=== PATIENT | female | born 1970 | race Caucasian/White ===

== ENCOUNTER 2019-11-15 16:51 | Emergency (ER) | payer OTHER, SELFPAY ==
[2019-11-15 16:55] VITALS: BP 116/58; PULSE 77; RESP 18; TEMP 36.9; O2SAT 98; BMI 21.6
[2019-11-15 17:16] VITALS: BP 113/63; PULSE 74; O2SAT 97
--- NOTE | 2019-11-15 17:33 | ED_ITS ---
HPI - Wound/Laceration General: Chief Complaint: Wound/Laceration Stated Complaint: LAC TO R ARM Time Seen by Provider: 11/15/19 17:21 History of Present Illness: HPI narrative: Patient comes in via ambulance she was at work at [employer] above some coolers and she slipped and fell and sustained a laceration abrasion to her right arm Onset (ago): minute(s) Extremity Location: Right: arm and forearm Place: work Patient tetanus UTD: No Context: accidental Associated symptoms: Reports no associated symptoms; Denies chills, fever(s), nausea or vomiting Treatments prior to arrival: bandage Review of Systems Const: Denies: fever(s), chills or body aches Eyes: Denies: change in vision or blurry vision ENMT: Denies: throat pain or nasal congestion Card: Denies: chest pain or dyspnea on exertion Resp: Denies: dyspnea, productive cough or non-productive cough GI: Denies: abdominal pain, nausea or vomiting Musc: Denies: extremity pain Skin/Breast: Reports: other (Abrasion laceration to right arm); Denies: rash Neuro: Denies: headache(s) Psych: Denies: anxiety or depression Wallace/Lymph: Denies: easy bruising Physical Exam Const: COMMON NORMALS: no acute distress, average body habitus and patient oriented x3 HENMT: COMMON NORMALS: normocephalic HEAD & SCALP: normal to inspection and normocephalic FACE & SINUS: normal facial exam Eye: COMMON NORMALS: conjunctivae normal GENERAL EYE: appearance normal, both eyes and all related structures CONJUNCTIVA: Yes conjunctivae normal Neck/C-Spine: COMMON NORMALS: no JVD Chest: COMMONS NORMALS: normal inspection of the chest Resp: COMMON NORMALS: normal respiratory effort and clear to auscultation bilaterally AUSCULTATION: clear to auscultation bilaterally Cardio: COMMON NORMALS: no JVD, regular rate and regular rhythm RATE: regular rate RHYTHM: regular rhythm GI: COMMON NORMALS: Normal to inspection, nondistended, normoactive bowel sounds present Extremity: COMMON NORMALS: normal to inspection and full ROM NARRATIVE EXTREMITY EXAM: Has a deep laceration to her right forearm lateral aspect mid area and then has an abrasion to her right inner upper arm neurovascular distal is intact Neuro: COMMON NORMALS: patient oriented x3 Procedures Laceration Laceration 1: Site: upper extremity Side (If applicable): right Size (cm): 3 Description: linear and irregular Depth: involves muscle layer Local Anesthetic: lidocaine 1% Amount of anesthesia used (mL): 4 Pre-repair: wound explored, irrigated extensively and deep structures intact Skin layer closed with: vicryl Size (cm): 3-0 Number of sutures: 4 Technique: simple, interrupted Size: 3-0 Number of sutures: 7 Technique: simple, interrupted Course Vital Signs: Vital signs: Vital Signs Temperature 98.5 F 11/15/19 16:55 Pulse Rate 75 11/15/19 18:30 Respiratory Rate 17 11/15/19 18:30 Blood Pressure 109/69 11/15/19 18:30 Pulse Oximetry 98 11/15/19 18:30 Discharge Plan Discharge Patient Disposition: Home, Self-Care Clinical Impression: Laceration, Abrasion Condition: Stable Referrals: Juan Luis Carmen MD [Primary Care Provider] - Discharge Diet: Usual diet Discharge Activity: Resume usual activity Patient Instructions: Laceration (ED), Abrasion (ED) Activity Restrictions/Additional Instructions: Wound care as directed sutures out in 7 days if any signs symptoms of infection develop follow-up with workman comp doc Discharge Date/Time: 11/15/19 18:30 Coding Level of Care Code ED Tar Heater Operator for Noe Fwd Exam Comprehensive
[2019-11-15] MEDS: lidocaine 1% INJ 20 mL 5 ML INTRADERMA (17:37)
[2019-11-15] MEDS: tetanus-dipt-pertussis 0.5 mL SDV IM (17:59)
--- NOTE | 2019-11-15 18:06 | PC.NURSE ---
Patients forearm and upper arm bandaged at this time with telfa and kerlix.
[2019-11-15 18:30] VITALS: BP 109/69; PULSE 75; RESP 17; O2SAT 98
== END 2019-11-15 18:30 | disposition home or self-care (01) ==
LOC: ER 18:21
PROVIDERS: Emergency Provider Nurse Practitioner Family; PCP Family Medicine
DX: S41.111A Laceration without foreign body of right upper arm, initial encounter (principal); W01.0XXA Fall on same level from slipping, tripping and stumbling without subsequent striking against object, initial encounter; Y99.0 Civilian activity done for income or pay; Z23 Encounter for immunization
CPT/HCPCS: 12345; 13121; 90715; 96372; 99281; 99283; J2001

== ENCOUNTER 2019-11-17 13:05 | Emergency (ER) | payer OTHER, SELFPAY ==
--- NOTE | 2019-11-17 13:07 | XRR_ITS ---
PROCEDURE INFORMATION: Exam: XR Right Knee Exam date and time: 11/17/2019 1:43 PM Age: 49 years old Clinical indication: Injury or trauma; Fall; Initial encounter; Blunt trauma; Knee; Right; Injury date: 11/15/19; Injury details: Fell off cooler TECHNIQUE: Imaging protocol: XR Right knee. Views: 3 views. COMPARISON: No relevant prior studies available. FINDINGS: Bones/joints: Unremarkable Soft tissues: Normal. XR/XR knee RT 3V* [id number] IMPRESSION: No acute findings.
[2019-11-17 13:16] VITALS: BP 131/65; PULSE 91; RESP 17; TEMP 36.4; O2SAT 98; BMI 21.6
--- NOTE | 2019-11-17 13:47 | ED_ITS ---
HPI - Extremity Injury (Lower) General: Chief Complaint: Extremity Injury, Lower Stated Complaint: right knee pain Time Seen by Provider: 11/17/19 13:46 Source: patient Mode of arrival: ambulatory Limitations: no limitations History of Present Illness: HPI Narrative: Patient is a 49-year-old female who presents to ED today with a complaint of right knee pain. Patient was seen here 2 days ago following a fall that happened at work. She states she was complaining of some mild knee pain at that time however based on her examination x-rays were not felt to be indicated. Patient tells me since then she has had increasing pain in the right knee and has noticed swelling and bruising. Patient is continuing to be ambulatory. complaint: knee injury Onset (ago): day(s) Injury: Left: knee Type of Injury: blunt Place: work Severity: moderate Relieving factors: immobilization Exacerbating factors: weight bearing, movement and palpation Context: fall Review of Systems Musc: Reports: joint pain (R knee) and joint swelling (R knee); Denies: neck pain, back pain, extremity pain or extremity swelling Neuro: Denies: numbness in extremities or sensory changes Physical Exam Const: COMMON NORMALS: no acute distress, average body habitus, patient oriented x3, no limitations, healthy appearing, alert and well nourished Extremity: OTHER: bruising/swelling noted to anterior knee/patellar region Neuro: COMMON NORMALS: patient oriented x3 SENSORIUM/ORIENTATION: Yes alert Course Vital Signs: Vital signs: Vital Signs Temperature 97.6 F 11/17/19 13:16 Pulse Rate 91 11/17/19 13:16 Respiratory Rate 17 11/17/19 13:16 Blood Pressure 131/65 11/17/19 13:16 Pulse Oximetry 98 11/17/19 13:16 MDM - Extremity Injury (Lower) Imaging Data^: R knee XR: Radiologist's impression: [address] [address] XRay Report Signed Patient: Patti Madrid Unit #: [id number] : 1970 Age/Sex: 49 / F ADM Date: 11/17/19 Loc: ER Room/Bed: Attending Dr: Ordering Provider/Ordering MD: James Velazquez MD Date of Service: 11/17/19 Procedure(s): XR knee RT 3V* [id number] Accession Number(s): [id number] Report Number: [id number] PROCEDURE INFORMATION: Exam: XR Right Knee Exam date and time: 11/17/2019 1:43 PM Age: 49 years old Clinical indication: Injury or trauma; Fall; Initial encounter; Blunt trauma; Knee; Right; Injury date: 11/15/19; Injury details: Fell off cooler TECHNIQUE: Imaging protocol: XR Right knee. Views: 3 views. COMPARISON: No relevant prior studies available. FINDINGS: Bones/joints: Unremarkable Soft tissues: Normal. XR/XR knee RT 3V* [id number] IMPRESSION: No acute findings. Dictated By: Twin Morrissey Signed By: Twin Morrissey Signed Date/Time: 11/17/19 140 DD/ 01 Discharge Plan Discharge Patient Disposition: Home, Self-Care Clinical Impression: Contusion of knee, right Qualifiers: Encounter type: initial encounter Qualified Code(s): S80.01XA - Contusion of right knee, initial encounter Condition: Stable Discharge Orders: Discharge Order (Routine); Ordered 11/17/19 Ordered By: Keyla Oliva Referrals: Juan Luis Carmen MD [Primary Care Provider] - Patient Instructions: Contusion in Adults (ED), RICE Therapy (ED) Activity Restrictions/Additional Instructions: Continue to ice and elevate extremity as directed. You may use [id number] Tylenol and ibuprofen as needed for discomfort. Please follow-up with primary care for one week for continued pain. Coding Level of Care Code ED Brewery Pumper for Noe Reynolds Exam Problem Focused
--- NOTE | 2019-11-17 14:16 | PC.NURSE ---
Patient declined crutches. Cuco wrap to right knee x 2 pateint given discharge instructions and verbalized understanding.
[2019-11-17 14:17] VITALS: BP 98/62; PULSE 74; RESP 14; O2SAT 99
== END 2019-11-17 14:21 | disposition home or self-care (01) ==
PROVIDERS: Emergency Provider Physician Assistant; PCP Family Medicine
DX: S80.01XA Contusion of right knee, initial encounter (principal); W19.XXXA Unspecified fall, initial encounter; Y99.0 Civilian activity done for income or pay
CPT/HCPCS: 12345; 73562; 99281; 99283

== ENCOUNTER → 2019-12-03 08:47 | Outpatient (BNVA) | payer OTHER, SELFPAY | PROVIDERS: PCP Family Medicine; Referring Provider Physician Assistant; Visit Provider Orthopaedic Surgery | DX: S89.91XA Unspecified injury of right lower leg, initial encounter (principal); M25.561 Pain in right knee; M25.461 Effusion, right knee; X58.XXXA Exposure to other specified factors, initial encounter | CPT/HCPCS: 73562 ==

== ENCOUNTER 2019-12-10 16:05 | Outpatient (CLI) | payer OTHER, SELFPAY ==
--- NOTE | 2019-12-10 16:33 | MRR_ITS ---
PROCEDURE INFORMATION: Exam: MR Right Lower Extremity Joint Without Contrast, Knee Exam date and time: 12/10/2019 5:00 PM Age: 49 years old Clinical indication: Injury or trauma; Fall; Initial encounter; Blunt trauma; Knee; Right; Injury date: 11/17/19; Patient HX: PT fell 11/17/19. C/O pain RT patella, aching into thigh; Additional info: S89.91xa unspecified injury of right lower leg, initial e. . . TECHNIQUE: Imaging protocol: MR of the Right lower extremity joint without contrast. Exam focused on the knee. COMPARISON: CR XR knee RT 3V* [id number] 12/03/2019 8:51 AM FINDINGS: Bones and cartilage: Unremarkable. No bone abnormalities. Articular cartilage normal. Joint spaces: No joint effusion. Medial meniscus: Unremarkable. No tear. Lateral meniscus: Unremarkable. No tear. Anterior cruciate ligament: Unremarkable. No tear. Posterior cruciate ligament: Unremarkable. No tear. Medial capsule and supporting structures: Unremarkable. No tear. Lateral capsule and supporting structures: Unremarkable. No tear. Extensor mechanism of knee: Unremarkable. No tear. Muscles: Unremarkable. Soft tissues: Prepatellar soft tissue edema, no mass. MR/MR knee RT wo con* [id number] IMPRESSION: Soft tissue edema.
== END 2019-12-10 16:06 | disposition home or self-care (01) ==
LOC: RADSHAW 16:28
PROVIDERS: PCP Family Medicine; Visit Provider Orthopaedic Surgery
DX: S89.91XA Unspecified injury of right lower leg, initial encounter (principal); X58.XXXA Exposure to other specified factors, initial encounter; R60.0 Localized edema
CPT/HCPCS: 73721

== ENCOUNTER 2020-04-07 11:54 | Emergency (ER) | payer SELFPAY ==
[2020-04-07 12:11] VITALS: BP 127/69; PULSE 92; RESP 16; TEMP 37; O2SAT 98; BMI 23.3
--- NOTE | 2020-04-07 12:45 | ECG_ITS ---
[facility] Test Date: 2020-04-07 Pat Name: Patti Madrid Department: Room: Gender: Female [employer] Systems Adminstrator: : 1970 Requested By: Maite De Dios I Order Number: [id number] Reading MD: PRUDENCE FERRARI Measurements Intervals [place] Rate: 80 P: 40 WY: 142 QRS: 84 QRSD: 81 T: 55 QT: 362 QTc: 419 Interpretive Statements SINUS RHYTHM INTERPRETATION BASED ON A DEFAULT AGE OF 40 YEARS No previous ECG available for comparison Electronically Signed On 04-07-2020 19:58:35 CHANNEL LAYER by PRUDENCE FERRARI [email or web address]
--- NOTE | 2020-04-07 12:46 | XR_ITS ---
WS: [id number] CHEST 2 VIEWS HISTORY: chest pain COMPARISON: 05/21/2018 Lungs: Hyperexpanded lungs with changes of emphysema. No pneumonia. Normal vasculature. Cardiac size: Normal. Mediastinum/Aorta: Normal mediastinum. Bones: Normal. XR/XR chest 2V* [id number] IMPRESSION: Chronic emphysema. No acute cardiopulmonary disease.
[2020-04-07 12:47] VITALS: BP 122/64; PULSE 71; RESP 18; O2SAT 99
--- NOTE | 2020-04-07 12:48 | W.ED.CHESTPA ---
HPI - Chest Pain General: Chief Complaint: Chest Pain Stated Complaint: CP X 3 DAYS Time Seen by Provider: 04/07/20 12:23 Source: patient Mode of arrival: ambulatory Limitations: no limitations History of Present Illness: HPI narrative: Left-sided chest pain x3 days. Chest pain has been persistent since then. Pain is worse on inspiration, coughing, shouting. No fever, no difficulty breathing. complaint: chest pain Onset (ago): day(s) (3) Timing of current episode: constant Prior episodes: No Onset: during rest Pain location: left chest Pain radiation: left arm and neck Severity: severe Quality: sharp Relieving factors: nothing Exacerbating factors: nothing Associated symptoms: Reports vomiting; Deny abdominal pain, diaphoresis, dyspnea, fever(s), leg edema, nausea, palpitations, sense of impending doom or syncope Risk Factors: Coronary artery disease risk factors: family history of CAD before age 50 Review of Systems General: Reports: 10 or more systems reviewed and unremarkable except in HPI and below Const: Denies: fever(s) or diaphoresis Eyes: Denies: change in vision or blurry vision ENMT: Denies: throat pain, enlarged tonsils, odynophagia, hoarseness, mouth pain or swelling of lips/tongue Card: Denies: palpitations or syncope Resp: Denies: dyspnea GI: Reports: vomiting; Denies: abdominal pain or nausea : Denies: flank pain, difficulty voiding, dysuria, urinary frequency, urinary urgency or urinary hesitancy Musc: Denies: neck pain, back pain or extremity swelling Skin/Breast: Denies: rash, pruritus or erythema Neuro: Denies: headache(s), numbness in extremities or weakness in extremities Endo: Denies: polyuria, polydipsia or tired all the time PFS ED PFSH: Social History (Reviewed 04/07/20 @ 12:51 by Maite De Dios MD, [facility]) Smoking and tobacco status: never smoked Alcohol intake: current Alcohol intake frequency: few times a week Substance/Drug Use: never Physical Exam Const: COMMON NORMALS: no acute distress, average body habitus, patient oriented x3, no limitations, healthy appearing, alert and well nourished HENMT: COMMON NORMALS: normocephalic, atraumatic and moist oral mucous membranes HEAD & SCALP: normocephalic and atraumatic Neck/C-Spine: COMMON NORMALS: full ROM, supple, no meningeal signs, no JVD and No carotid bruits Chest: COMMONS NORMALS: normal inspection of the chest and normal palpation of entire chest wall Resp: COMMON NORMALS: normal respiratory effort, No retractions, No use of accessory muscles, clear to auscultation bilaterally and percussion normal AUSCULTATION: clear to auscultation bilaterally PERCUSSION: percussion normal Cardio: COMMON NORMALS: no JVD, regular rate, regular rhythm, S1 normal heart sound present, S2 normal heart sound present, No gallops present (Cardio), No clicks present (Cardio), No murmurs present (Cardio), No rub (Cardio) and Peripheral pulses 2+ throughout RATE: regular rate RHYTHM: regular rhythm HEART SOUNDS: S1 normal heart sound present and S2 normal heart sound present PERIPHERAL PULSES: Peripheral pulses 2+ throughout GI: COMMON NORMALS: Normal to inspection, nondistended, normoactive bowel sounds present, Soft to palpation, non-tender, No hepatosplenomegaly present, no masses and no bruits PALPATION: Yes Soft to palpation and Yes No hepatosplenomegaly present Extremity: COMMON NORMALS: normal to inspection, full ROM, capillary refill normal, no calf tenderness and no pedal edema Neuro: COMMON NORMALS: patient oriented x3 SENSORIUM/ORIENTATION: Yes alert MENINGEAL SIGNS: Yes no meningeal signs Skin: COMMON NORMALS: no rashes or lesions noted, no wounds, turgor normal, no jaundice, no petechiae and no mottling GENERAL SKIN EXAM: no rashes or lesions noted and turgor normal Course Reevaluation(s): Reevaluation #1: Discussed her lab and imaging findings with her. Negative high-sensitivity troponin, and since her pain has been continuous for 3 days it is unlikely to be ACS. Negative D-dimer. Heart score is low. Symptoms are most likely secondary to pleurisy and she is advised to take NSAIDs. She voiced understanding and is in agreement with the plan. Time: 13:52 Vital Signs: Vital signs: Vital Signs Temperature 98.6 F 04/07/20 12:11 Pulse Rate 84 04/07/20 13:30 Respiratory Rate 18 04/07/20 13:30 Blood Pressure 112/73 04/07/20 13:30 Pulse Oximetry 98 04/07/20 13:30 MDM - Chest Pain MDM Narrative: Medical decision making narrative: Patient with clinical features consistent with pleurisy. Heart score is 2 for age and risk factors (family history). She is therefore low risk for major adverse cardiac event in the next 6 weeks. She will be discharged home and is advised to take NSAIDs. Medical Records: Attestation: I reviewed the patient's medical records. Lab Data: Attestation: I reviewed the patient's lab results. Labs: Lab Results 04/07/20 04/07/20 04/07/20 Range/Units 12:43 12:43 12:43 WBC 3.5 L (4.0-10.0) 10^3/ uL RBC 4.51 (4.1-5.3) 10^6/u L Hgb 13.6 (11.5-15.3) g/dL Hct 40.9 (37.0-47.0) % MCV 90.7 (81-99) fL MCH 30.2 (28.0-34.0) pg MCHC 33.3 (30.0-36.0) g/dL RDW 12.1 (12.1-15.1) % Plt Count 229 (130-400) 10^3/c mm MPV 10.3 (7.4-10.4) fL Neut % (Auto) 49.1 % Lymph % (Auto) 39.0 % Amelia % (Auto) 8.8 % Eos % (Auto) 1.4 % Baso % (Auto) 1.7 % Neut # (Auto) 1.72 L (1.8-7.7) 10^3/u L Lymph # (Auto) 1.4 (0.8-4.8) 10^3/u L Amelia # (Auto) 0.3 (0.2-0.9) 10^3/u L Eos # (Auto) 0.1 (0.0-0.8) 10^3/u L Baso # (Auto) 0.1 (0.0-0.1) 10^3/u L Nucleated RBC % (a uto) 0 % Nucleated RBCs # 0.0 /100WBC D-Dimer <= 0.27 (0-0.59) ug/mIFE U Sodium 139 (136-145) mmol/L Potassium 3.5 (3.5-5.1) mmol/L Chloride 105 (98-107) mmol/L Carbon Dioxide 22 (22-29) mmol/L Anion Gap 15.5 (5-19) BUN 12 (6-20) mg/dL Creatinine 0.7 (0.5-0.9) mg/dL GFR Calculation 88.9 L (90-130) mL/min Glucose 113 (65-115) mg/dL Calculated Osmolal ity 289 (285-295) mOsm/k g Calcium 8.9 (8.5-10.5) mg/dL Total Bilirubin 0.2 (0.15-1.2) mg/dL AST 19 (0-32) U/L ALT 13 (0-33) U/L Alkaline Phosphata se 59 (35-105) IU/L Troponin T Baselin e (0-10) ng/L NT-Pro-B Natriuret Pep 75 (0-125) pg/mL Total Protein 7.2 (6.6-8.7) g/dL Albumin 4.5 (3.5-5.2) g/dL Globulin 2.7 (1.3-4.6) g/dL Lipase 21 (13-60) U/L //20 Range/Units 12:43 WBC (4.0-10.0) 10^3/ uL RBC (4.1-5.3) 10^6/u L Hgb (11.5-15.3) g/dL Hct (37.0-47.0) % MCV (81-99) fL MCH (28.0-34.0) pg MCHC (30.0-36.0) g/dL RDW (12.1-15.1) % Plt Count (130-400) 10^3/c mm MPV (7.4-10.4) fL Neut % (Auto) % Lymph % (Auto) % Amelia % (Auto) % Eos % (Auto) % Baso % (Auto) % Neut # (Auto) (1.8-7.7) 10^3/u L Lymph # (Auto) (0.8-4.8) 10^3/u L Amelia # (Auto) (0.2-0.9) 10^3/u L Eos # (Auto) (0.0-0.8) 10^3/u L Baso # (Auto) (0.0-0.1) 10^3/u L Nucleated RBC % (a uto) % Nucleated RBCs # /100WBC D-Dimer (0-0.59) ug/mIFE U Sodium (136-145) mmol/L Potassium (3.5-5.1) mmol/L Chloride (98-107) mmol/L Carbon Dioxide (22-29) mmol/L Anion Gap (5-19) BUN (6-20) mg/dL Creatinine (0.5-0.9) mg/dL GFR Calculation (90-130) mL/min Glucose (65-115) mg/dL Calculated Osmolal ity (285-295) mOsm/k g Calcium (8.5-10.5) mg/dL Total Bilirubin (0.15-1.2) mg/dL AST (0-32) U/L ALT (0-33) U/L Alkaline Phosphata se (35-105) IU/L Troponin T Baselin e 6 (0-10) ng/L NT-Pro-B Natriuret Pep (0-125) pg/mL Total Protein (6.6-8.7) g/dL Albumin (3.5-5.2) g/dL Globulin (1.3-4.6) g/dL Lipase (13-60) U/L Imaging Data^: CXR: Attestation: I personally reviewed and interpreted this imaging study as follows: Radiologist's impression: [address] [address] XRay Report Signed Patient: Patti Madrid AUnnelly #: [id number] : 1970Acct#:[id number] Age/Sex: 49 / FADM Date: 04/07/20 Loc: ERRoom/Bed: Attending Dr: Ordering Provider/Ordering MD: Maite De Dios MD, [facility] Date of Service: 04/07/20 Procedure(s): XR chest 2V* [id number] Accession Number(s): [id number] Report Number: [id number] WS: [id number] CHEST 2 VIEWS HISTORY: chest pain COMPARISON: 05/21/2018 Lungs: Hyperexpanded lungs with changes of emphysema. No pneumonia. Normal vasculature. Cardiac size: Normal. Mediastinum/Aorta: Normal mediastinum. Bones: Normal. XR/XR chest 2V* [id number] IMPRESSION: Chronic emphysema. No acute cardiopulmonary disease. Dictated By:Patti Mcgregor DO Signed By:Patti Mcgregor DOSigned Date/Time:04/07/201316 DD/ 15 EKG Data^: EKG 1: Attestation: I personally reviewed and interpreted this EKG as follows: EKG interpretation date: 04/07/20 Prior EKG tracings: not available for review Interpretation: Normal sinus rhythm. Heart rate [address] changes. Normal axis. Normal EKG. Discharge Plan Discharge Patient Disposition: Home Clinical Impression: Pleurisy Condition: Stable Prescriptions: Continued estradiol 0.5 mg Tablet 0.5 mg PO DAILY RF: 0 Discharge Orders: Discharge Order (Routine); Ordered 04/07/20 Ordered By: Maite De Dios Referrals: Juan Luis Carmen MD [Primary Care Provider] - 1-3 days Discharge Diet: Usual diet Discharge Activity: Increase activity as tolerated Patient Instructions: Pleurisy (ED) Activity Restrictions/Additional Instructions: Return for any new or worsening symptoms. Follow-up with your primary care provider within 3 days. Take ibuprofen for your pain, take 1 to 4 tablets of ibuprofen every 8 hours as needed for the pain. Drink plenty of fluids to keep well-hydrated. Coding Level of Care Code ED Joint Filler for Chg Fwd Exam Comprehensive
[2020-04-07 12:54] LABS: Basophils # 0.1 10^3/uL (0.0-0.1); Basophils % 1.7 %; Eosinophils # 0.1 10^3/uL (0.0-0.8); Eosinophils % 1.4 %; Hematocrit 40.9 % (37.0-47.0); Hemoglobin 13.6 g/dL (11.5-15.3); Lymphocytes # 1.4 10^3/uL (0.8-4.8); Mean Corpuscular HGB Conc 33.3 g/dL (30.0-36.0); Mean Corpuscular Hemoglobin 30.2 pg (28.0-34.0); Mean Corpuscular Volume 90.7 fL (81-99); Mean Platelet Volume 10.3 fL (7.4-10.4); Monocytes # 0.3 10^3/uL (0.2-0.9); Monocytes % 8.8 %; Neutrophils # 1.72 10^3/uL (1.8-7.7); Neutrophils % 49.1 %; Nucleated Red Blood Cells % 0 %; Platelet Count 229 10^3/cmm (130-400); Red Blood Count 4.51 10^6/uL (4.1-5.3); Red Cell Distribution Width 12.1 % (12.1-15.1); White Blood Count 3.5 10^3/uL (4.0-10.0)
[2020-04-07] MEDS: nitroglycerin 1 gm/inch oint Pkt 1 INCH TOPICAL (12:54)
[2020-04-07] MEDS: aspirin 81 mg Chew Tablet 324 MG PO (12:54)
[2020-04-07 13:03] LABS: D Dimer <= 0.27 ug/mIFEU (0-0.59)
[2020-04-07 13:08] LABS: Troponin(5th) Baseline 6 ng/L (0-10)
[2020-04-07 13:16] LABS: NT Pro B Type Natriuretic Pept 75 pg/mL (0-125)
[2020-04-07 13:18] LABS: Alanine Aminotransferase 13 U/L (0-33); Albumin Level 4.5 g/dL (3.5-5.2); Alkaline Phosphatase 59 IU/L (35-105); Anion Gap 15.5 (5-19); Aspartate Amino Transferase 19 U/L (0-32); Blood Urea Nitrogen 12 mg/dL (6-20); Calcium 8.9 mg/dL (8.5-10.5); Carbon Dioxide 22 mmol/L (22-29); Chloride 105 mmol/L (98-107); Creatinine Clr Calc Pharmacy 91.4713; Globulin 2.7 g/dL (1.3-4.6); Glomerular Filtration Rate 88.9 mL/min (90-130); Glucose 113 mg/dL (65-115); Lipase 21 U/L (13-60); Osmolality Calculated 289 mOsm/kg (285-295); Potassium 3.5 mmol/L (3.5-5.1); Sodium 139 mmol/L (136-145); Total Bilirubin 0.2 mg/dL (0.15-1.2); Total Protein 7.2 g/dL (6.6-8.7)
[2020-04-07 13:30] VITALS: BP 112/73; PULSE 84; RESP 18; O2SAT 98
[2020-04-07] MEDS: ketorolac 30 mg/mL INJ IVP (13:40)
[2020-04-07 14:22] VITALS: BP 102/50; PULSE 66; RESP 18; TEMP 36.6; O2SAT 96
== END 2020-04-07 14:26 ==
PROVIDERS: Emergency Provider Family Medicine; PCP Family Medicine
DX: R09.1 Pleurisy (principal)
CPT/HCPCS: 12345; 71046; 80053; 83690; 83880; 84484; 85025; 85378; 93005; 96374; 96375; 99282; 99284; J1885

== ENCOUNTER → 2020-11-21 12:37 | Outpatient (BNVA) | payer SELFPAY | PROVIDERS: PCP Family Medicine; Visit Provider Nurse Practitioner Family | DX: Z20.822 Contact with and (suspected) exposure to COVID-19 (principal) | CPT/HCPCS: 87635 ==

== ENCOUNTER 2022-08-04 16:21 | Emergency (ER) | payer BC, SELFPAY ==
[2022-08-04 16:22] VITALS: BP 123/69; PULSE 76; RESP 24; TEMP 36.5; O2SAT 100; BMI 25.7
--- NOTE | 2022-08-04 16:22 | XRR_ITS ---
PROCEDURE INFORMATION: Exam: XR Right Ankle Exam date and time: 08/04/2022 4:28 PM Age: 52 years old Clinical indication: Pain and injury or trauma; Other: Twist injury; Sprain or strain; Ankle; Right; Additional info: Ankle trauma, swelling TECHNIQUE: Imaging protocol: Radiologic exam of the right ankle. Views: 3 or more views. COMPARISON: No relevant prior studies available. FINDINGS: Bones/joints: Linear lucency at the lateral malleolus seen only on the oblique image, a nondisplaced fracture cannot be ruled out. No dislocation. Normal bone mineralization. No joint effusion. Joint spaces are maintained. Ankle mortise is symmetric. Soft tissues: Marked soft tissue swelling over the lateral malleolus. No radiopaque foreign body. XR/XR ankle RT min 3V* [id number] IMPRESSION: 1. Linear lucency at the lateral malleolus seen only on the oblique image, a nondisplaced fracture cannot be ruled out. 2. Marked soft tissue swelling over the lateral malleolus.
--- NOTE | 2022-08-04 16:26 | ED_ITS ---
Documented by User: [email or web address] Hall 08/04/22 16:58 HPI - Extremity Problem General: Chief complaint: Extremity Injury, Lower Stated complaint: RIGHT ANKLE PAIN Time Seen by Provider: 08/04/22 16:22 History of Present Illness: Patient is a 52-year-old female that presents to the emergency department with complaints of right ankle pain. She reports just prior to arrival she was stepping off a porch and rolled her ankle. She reports hearing 3 loud pops and had immediate pain and was nonambulatory. EMS was contacted and she was transported. In route she received fentanyl. She has quite a bit of swelling over the lateral malleolus She is neurovascularly intact and no open wounds. No previous injury to this extremity Patient denies any medical history Patient only takes estradiol She does not use tobacco/nicotine products Associated symptoms: Deny chest pain, fever(s) or rash Review of Systems General: Reports: 10 or more systems reviewed and unremarkable except in HPI and below Const: Denies: fever(s), chills, change in appetite, change in weight, fatigue or malaise Eyes: Denies: change in vision, eye discomfort, eye discharge or eye redness ENMT: Denies: throat pain, enlarged tonsils, odynophagia, hoarseness, ear or mastoid pain, ear discharge, change in hearing, tinnitus, nasal discharge, nasal congestion, post nasal drip or sinus pain Card: Denies: chest pain, palpitations, irregular heart rhythm, edema, dyspnea on exertion, orthopnea or leg pain with exertion Resp: Denies: dyspnea, productive cough, non-productive cough, wheezing, stridor or chest congestion GI: Denies: abdominal pain, nausea, vomiting, dysphagia, diarrhea, constipation, bloating, GI cramping or hematochezia : Denies: flank pain, difficulty voiding, dysuria, urinary frequency, urinary urgency, urinary hesitancy, oliguria or hematuria Musc: Reports: extremity pain, joint pain, joint swelling and limited range of motion; Denies: neck pain, back pain, joint redness, joint warmth or muscle weakness Skin/Breast: Denies: rash, pruritus, erythema, photosensitivity or new lesions Neuro: Denies: headache(s), numbness in extremities, weakness in extremities, sensory changes, lack of coordination, difficulty walking, frequent falls, d izziness, confusion, Slurred speech present, difficulty communicating thoughts, seizure-like activity or involuntary movements Endo: Denies: polyuria, polydipsia or tired all the time Wallace/Lymph: Denies: easy bruising or easy bleeding PFSH ED PFSH: Social History Smoking and tobacco status: never smoked Alcohol intake: current Alcohol intake frequency: few times a week Physical Exam Const: COMMON NORMALS: no acute distress, patient oriented x3 and alert GENERAL APPEARANCE: cooperative ORIENTATION/CONSCIOUSNESS: Yes awake, Yes oriented to person, Yes oriented to place and Yes oriented to time HENMT: COMMON NORMALS: normocephalic and atraumatic HEAD & SCALP: no rmocephalic and atraumatic FACE & SINUS: normal facial exam MOUTH: Normal oral and palatal mucosa present THROAT: posterior oropharynx normal Eye: COMMON NORMALS: Equal, round and reactive pupils present, EOMs intact bilaterally, conjunctivae normal and no scleral icterus GENERAL EYE: appearance normal, both eyes and all related structures ALIGNMENT: Yes alignment normal PERIORBITAL: periorbital findings normal CONJUNCTIVA: Yes conjunctivae normal PUPIL: Yes Equal, round and reactive pupils present Neck/C-Spine: COMMON NORMALS: full ROM GENERAL: Yes normal visual inspection Lymph: LYMPHATIC: no lymphadenopathy noted Chest: COMMONS NORMALS: normal inspection of the chest Breast/axilla inspection: Yes no chest deformity, asymmetry, normal contours, no nodules, masses, tenderness Resp: COMMON NORMALS: normal respiratory effort, No retractions, No use of accessory muscles and clear to auscultation bilaterally EFFORT & INSPECTION: Yes able to speak in complete sentences and Yes symmetric chest movement AUSCULTATION: clear to auscultation bilaterally Cardio: COMMON NORMALS: regular rate, regular rhythm and Peripheral pulses 2+ throughout RATE: regular rate RHYTHM: regular rhythm PERIPHERAL PULSES: Peripheral pulses 2+ throughout GI: COMMON NORMALS: Normal to inspection, nondistended, normoactive bowel sounds present, Soft to palpation, non-tender and No hepatosplenomegaly present INSPECTION: Yes normal to inspection AUSCULTATION: Yes normoactive bowel sounds PALPATION: Yes Soft to palpation and Yes No hepatosplenomegaly present RECTAL EXAM: deferred Extremity: NARRATIVE EXTREMITY EXAM: Right lower extremity: Skin is clean dry and intact Ecchymosis and edema noted over the lateral malleolus. Patient has full active range of motion of hip and knee Able to perform a straight leg raise Denies tenderness or pain anywhere else Patient is able to dorsiflex plantarflex foot although limited by pain Patient is able to dorsiflex great toe Sensation intact to light touch at medial, lateral, dorsal, plantar surface of the foot and first webspace DP pulses palpable and cap refills less than 3-second GENERAL: Yes normal exam except as noted Neuro: COMMON NORMALS: patient oriented x3 SENSORIUM/ORIENTATION: Yes alert, Yes oriented to person, Yes oriented to place and Yes oriented to time CRANIAL NERVES: Yes CN normal except as noted Psych: COMMON NORMALS: mental status grossly normal, Normal thought process present, cooperative, activity/motor behavior normal, denies homicidal ideation and denies suicidal ideation THOUGHT PROCESS: Normal thought process present Skin: COMMON NORMALS: no rashes or lesions noted, no wounds and turgor normal GENERAL SKIN EXAM: no rashes or lesions noted and turgor normal Course Vital Signs: Vital signs: Vital Signs Temperature 97.7 F 08/04/22 16:22 Pulse Rate 68 08/04/22 17:46 Respiratory Rate 22 H 08/04/22 17:46 Blood Pressure 123/69 08/04/22 17:46 Pulse Oximetry 97 08/04/22 17:46 Oxygen Delivery Me thod 08/04/22 16:29 MDM - Extremity (Nontraumatic) Medical Decision Making Is a 52-year-old female that presents to the emergency department with complaints of right ankle pain after rolling it while taking some stairs. She denies any other extremity, muscle, joint pain or tenderness or injury. She denies striking her head or LOC. I obtained a XR of the right ankle which reveals a stable mortise, no evidence of fracture or dislocation. I did treat her pain with Toradol She does have quite a bit of swelling to the lateral aspect of her ankle. Patient is going to be placed in a removable boot. In 3 days she should start working on ankle range of motion. She should use Tylenol and nonsteroidal anti-inflammatory drugs for pain control. Patient should also utilize ice She should return to the emergency department for new concerning or worsening symptom Lab Data Radiology Impressions Ankle X-Ray 08/04/22 16:22 IMPRESSION: 1. Linear lucency at the lateral malleolus seen only on the oblique image, a nondisplaced fracture cannot be ruled out. 2. Marked soft tissue swelling over the lateral malleolus. Discharge Plan Discharge Patient Disposition: Home Clinical Impression: Ankle sprain and strain Condition: Stable Prescriptions: No Action estradiol 0.5 mg Tablet 0.5 mg PO DAILY Rx Instructions: pt states she has been out of the medication for a couple of days. Discharge Orders: Discharge ED (Routine); Ordered 08/04/22 Ordered By: Sohail Rosa Referrals: Juan Luis Carmen MD [Primary Care Provider] - Discharge Diet: Advance as tolerated Discharge Activity: Resume usual activity Patient Instructions: Ankle Sprain (ED), Pain Management Activity Restrictions/Additional Instructions: Crutches and walking boot for comfort In 3 days and when she does start ankle range of motion exercises Rest, ice, compression, elevation for pain NSAIDs like ibuprofen naproxen Advil as an anti-inflammatory Tylenol for pain Weightbearing as tolerated. This means you are allowed to bear weight however I can understand if you are hurting. You will progress to walking. 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[employer] Documented by User: Rao Ludwig DO 08/05/22 06:57 HPI - Extremity Problem General: Chief complaint: Extremity Injury, Lower Stated complaint: RIGHT ANKLE PAIN Time Seen by Provider: 08/04/22 16:22 PFSH ED PFSH: Social History Smoking and tobacco status: never smoked Alcohol intake: current Alcohol intake frequency: few times a week Course Vital Signs: Vital signs: Vital Signs Temperature 97.7 F 08/04/22 16:22 Pulse Rate 68 08/04/22 17:46 Respiratory Rate 22 H 08/04/22 17:46 Blood Pressure 123/69 08/04/22 17:46 Pulse Oximetry 97 08/04/22 17:46 Oxygen Delivery Me thod 08/04/22 16:29 MDM - Extremity (Nontraumatic) Medical Decision Making Is a 52-year-old female that presents to the emergency department with complaints of right ankle pain after rolling it while taking some stairs. She denies any other extremity, muscle, joint pain or tenderness or injury. She denies striking her head or LOC. I obtained a XR of the right ankle which reveals a stable mortise, no evidence of fracture or dislocation. I did treat her pain with Toradol She does have quite a bit of swelling to the lateral aspect of her ankle. Patient is going to be placed in a removable boot. In 3 days she should start working on ankle range of motion. She should use Tylenol and nonsteroidal anti-inflammatory drugs for pain control. Patient should also utilize ice She should return to the emergency department for new concerning or worsening symptom Chart reviewed and patient discussed with midlevel. Agree with assessment and plan. Lab Data Radiology Impressions Ankle X-Ray 08/04/22 16:22 IMPRESSION: 1. Linear lucency at the lateral malleolus seen only on the oblique image, a nondisplaced fracture cannot be ruled out. 2. Marked soft tissue swelling over the lateral malleolus. Discharge Plan Discharge Patient Disposition: Home Clinical Impression: Ankle sprain and strain Condition: Stable Prescriptions: No Action estradiol 0.5 mg Tablet 0.5 mg PO DAILY Rx Instructions: pt states she has been out of the medication for a couple of days. Discharge Orders: Discharge ED (Routine); Ordered 08/04/22 Ordered By: Sohail Rosa Referrals: Juan Luis Carmen MD [Primary Care Provider] - Discharge Diet: Advance as tolerated Discharge Activity: Resume usual activity Patient Instructions: Ankle Sprain (ED), Pain Management Activity Restrictions/Additional Instructions: Crutches and walking boot for comfort In 3 days and when she does start ankle range of motion exercises Rest, ice, compression, elevation for pain NSAIDs like ibuprofen naproxen Advil as an anti-inflammatory Tylenol for pain Weightbearing as tolerated. This means you are allowed to bear weight however I can understand if you are hurting. You will progress to walking. 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
[2022-08-04 16:29] VITALS: BP 123/69; PULSE 68; RESP 22; O2SAT 97
[2022-08-04] MEDS: ketorolac 30 mg/mL INJ IVP (16:30)
[2022-08-04 17:46] VITALS: BP 123/69; PULSE 68; RESP 22; O2SAT 97
== END 2022-08-04 17:48 | disposition home or self-care (01) ==
PROVIDERS: Emergency Provider Nurse Practitioner; PCP Family Medicine
DX: S93.401A Sprain of unspecified ligament of right ankle, initial encounter (principal); S96.911A Strain of unspecified muscle and tendon at ankle and foot level, right foot, initial encounter; X50.1XXA Overexertion from prolonged static or awkward postures, initial encounter
CPT/HCPCS: 73610; 96374; 99284; J1885

== ENCOUNTER → 2022-08-13 10:04 | Outpatient (BNVA) | payer BC, SELFPAY | PROVIDERS: PCP Family Medicine; Visit Provider Nurse Practitioner Family | DX: S82.831A Other fracture of upper and lower end of right fibula, initial encounter for closed fracture (principal); X50.9XXA Other and unspecified overexertion or strenuous movements or postures, initial encounter | CPT/HCPCS: 73610 ==

== ENCOUNTER → 2022-09-10 09:16 | Outpatient (BNVA) | payer BC, SELFPAY | PROVIDERS: PCP Family Medicine; Visit Provider Nurse Practitioner Family | DX: S82.401A Unspecified fracture of shaft of right fibula, initial encounter for closed fracture (principal); X58.XXXA Exposure to other specified factors, initial encounter | CPT/HCPCS: 73610 ==

== ENCOUNTER 2025-04-29 09:13 | Outpatient (CLI) | payer OTHER, SELFPAY ==
--- NOTE | 2025-04-29 09:23 | MM_ITS ---
WS: [id number] BILATERAL 3D TOMOSYNTHESIS DIGITAL SCREENING MAMMOGRAPHY WITH CAD CLINICAL INFORMATION: ANNUAL SCREEN HISTORY: Screening mammogram. No current complaints. COMPARISON: 2016 TECHNIQUE: Bilateral CC and MLO views. FINDINGS: The breasts are composed of heterogeneous fibroglandular density tissue, which can limit the detection of small underlying mass lesions. Incidental bilateral punctate calcifications. Ovoid nodule posterior depth LEFT breast measuring 9 mm is new from previous near the 6 o'clock position. Recommend LEFT breast diagnostic mammography and ultrasound. Unremarkable RIGHT breast MM/MM scr tomosynthesis [id number] IMPRESSION: DENSITY: The breasts are heterogeneously dense, which may obscure small masses. BI-RADS: 0 - Incomplete: Need additional imaging evaluation FOLLOW UP: Need Additional Imaging Recommend LEFT breast diagnostic mammography and ultrasound.
== END 2025-04-29 09:14 | disposition home or self-care (01) ==
LOC: RAD 09:17
PROVIDERS: PCP Family Medicine; Visit Provider Family Medicine
DX: Z12.31 Encounter for screening mammogram for malignant neoplasm of breast (principal); R92.333 Mammographic heterogeneous density, bilateral breasts; R92.323 Mammographic fibroglandular density, bilateral breasts; R92.1 Mammographic calcification found on diagnostic imaging of breast; N63.24 Unspecified lump in the left breast, lower inner quadrant
CPT/HCPCS: 77063; 77067